=== PATIENT | female | born 1965 | race Caucasian/White ===

== ENCOUNTER 2017-12-30 14:29 | Emergency (ER) | payer OTHER ==
[2017-12-30] MEDS: ONDANSETRON (ODT) 4 MG TAB ODT (15:22)
[2017-12-30] MEDS: ACETAMINOPHEN 325 MG TAB PO (15:22)
[2017-12-30 16:18] LABS: ADD UMIC YES; UR AMORPHOUS CRYSTAL FEW /HPF (NONE SEEN); UR ASCORBIC ACID 40 mg/dL (NEGATIVE); UR BILIRUBIN (Dip) NEGATIVE (NEGATIVE); UR BLOOD (Dip) NEGATIVE (NEGATIVE); UR CLARITY CLOUDY (CLEAR); UR COLOR YELLOW (YELLOW); UR GLUCOSE (Dip) NEGATIVE (NEGATIVE); UR KETONES (Dip) TRACE mg/dL (NEGATIVE); UR LEUKOCYTE ESTERASE (Dip) 1+ Leu/ul (NEGATIVE); UR MUCUS FEW /HPF (NONE SEEN); UR NITRITE (Dip) NEGATIVE (NEGATIVE); UR RBC 3 /HPF (0-5); UR SPECIFIC GRAVITY (Dip) 1.026 (1.003-1.030); UR SQUAMOUS EPITHELIAL CELL MODERATE /HPF (FEW); UR TOTAL PROTEIN (Dip) NEGATIVE (NEGATIVE); UR UROBILINOGEN (Dip) NEGATIVE (NEGATIVE); UR WBC 7 /HPF (0-5)
[2017-12-30] MEDS: CEPHALEXIN 500 MG CAP PO (16:38)
== END 2017-12-30 16:43 | disposition home or self-care (01) ==
LOC: FTE 14:29
DX: N30.00 Acute cystitis without hematuria (principal); R51 Headache
CPT/HCPCS: 70450; 81001; 82962; 99284-25